=== PATIENT | female | born 1990 | race African-American/Black ===

== ENCOUNTER 2019-11-10 15:26 | Inpatient (IN) ==
[2019-11-10] MEDS ORDERED: BUTORPHANOL 2 MG/ML VIAL IV PRN (16:17)
[2019-11-10] MEDS ORDERED: ONDANSETRON 4 MG/2 ML VIAL IV PRN (16:17)
[2019-11-10] MEDS ORDERED: MEPERIDINE 50 MG/1 ML VIAL IV PRN (16:17)
[2019-11-10] MEDS ORDERED: DINOPROSTONE VAG GEL 10 MG SYRINGE VAG ONE (16:25)
[2019-11-10 16:45] LABS: Basophils % 0.2 % (0.0-0.8); Eosinophils # 0.2 10*3/uL (0.0-0.87); Eosinophils % 1.7 % (0.00-10.9); Hematocrit 37.1 VOL% (35.7-47.0); Hemoglobin 11.8 GM/DL (12.0-16.0); Immature Granulocytes % 0.6 %; Immature Granulocytes Absolute 0.06 #; Lymphocytes # 2.4 10*3/uL (1.4-4.0); Lymphocytes % 22.2 % (21.3-54.2); Mean Corpuscular HGB Conc 31.8 GM/DL (32-36); Mean Corpuscular Volume 92.8 FL (87-102); Mean Platelet Volume 10.5 FL (9.6-12.0); Monocytes % 9.6 % (1.7-12.7); Neutrophils % 65.7 % (38.7-73.9); Platelet Count 198 T/CUMM (130-400); Red Cell Distribution Width 14.6 % (9.3-17.3); White Blood Count 10.9 T/CUMM (4-12)
[2019-11-11] MEDS ORDERED: OXYTOCIN/LR 20 UNIT/1,000 ML BAG IV SCH (02:00)
[2019-11-11] MEDS: LACTATED RINGERS 1,000 ML IV SCH ×2 (02:45→10:40)
[2019-11-11] MEDS ORDERED: CITRIC ACID/SODIUM CITRATE 30 ML UDCUP PO ONE (09:02)
[2019-11-11] MEDS ORDERED: LACTATED RINGERS 1,000 ML IV ONE (09:02)
[2019-11-11] MEDS ORDERED: FAMOTIDINE 20 MG/2 ML VIAL IV ONE (09:02)
[2019-11-11] MEDS ORDERED: diphenhydrAMINE 50 MG/1 ML VIAL IV PRN ×2 (09:03)
[2019-11-11] MEDS ORDERED: PROMETHAZINE 25 MG/1 ML VIAL IM ONE (09:03)
[2019-11-11] MEDS ORDERED: NALOXONE 0.4 MG/ML VIAL IV PRN (09:03)
[2019-11-11] MEDS ORDERED: hydrOXYzine HCL 25 MG/1 ML VIAL IM PRN (09:03)
[2019-11-11] MEDS ORDERED: ePHEDrine 50 MG/ML AMP IV PRN (09:03)
[2019-11-11] MEDS ORDERED: fentaNYL 2 MCG/ROPIV 0.2% EPID 100 ML EPIDURAL SCH (09:30)
[2019-11-11 12:24] LABS: Apearance,Urine CLEAR (Clear); Bacteria,Urine Occasional /HPF (Few); Bilirubin,Urine Negative (Negative); Blood, Urine Negative (Negative); Glucose,Urine (UA) Negative (Negative); Ketones,Urine 5 mg/dL (Negative); Mucus,Urine Few /LPF (Occasional); Nitrite,Urine Negative (Negative); Protein,Urine Negative; RBC,Urine 1 /HPF (0-4); Squamous Epithelial Cell,Urine Occasional /HPF (0-10); Urine Color Yellow (Yellow); Urine Specific Gravity 1.014 (1.001-1.035); Urine Urobilinogen < 2.0 EU/DL (0.2-1.0); WBC,Urine 3 /HPF (0-6)
[2019-11-11] MEDS ORDERED: OXYTOCIN/LR 30 UNIT/1,000 ML BAG IV ONE (17:37)
[2019-11-11] MEDS ORDERED: OXYTOCIN 10 UNIT/ML VIAL IM ONE (17:37)
[2019-11-11] MEDS ORDERED: ceFAZolin 3,000 MG in SYRINGE 1 EACH IV SCH (18:00)
[2019-11-11 18:40] LABS: Cord Arterial Blood HCO3 25.7 MMOL/L; Cord Venous Blood HCO3 21.3 MMOL/L; Cord Venous Blood PCO2 55.7 MMHG; Cord Venous Blood PO2 17.2
[2019-11-11] MEDS ORDERED: ACETAMINOPHEN 325 MG TABLET PO PRN (18:56)
[2019-11-11] MEDS ORDERED: OXYTOCIN/LR 20 UNIT/1,000 ML BAG IV ONE (18:56)
[2019-11-11] MEDS ORDERED: MAGNESIUM HYDROXIDE SUSP 30 ML UDCUP PO PRN (18:56)
[2019-11-11] MEDS ORDERED: ONDANSETRON 4 MG/2 ML VIAL IV PRN (18:56)
[2019-11-11] MEDS ORDERED: RHO(D) IMMUNE GLOBULIN 300 MCG SYRINGE IM ONE (18:56)
[2019-11-11] MEDS ORDERED: LACTATED RINGERS 1,000 ML IV SCH (19:00)
[2019-11-11] MEDS ORDERED: MORPHINE 10 MG/10 ML VIAL ONE (19:09)
[2019-11-11] MEDS ORDERED: LIDOCAINE MPF 2% /EPI 20 ML VIAL ONE (19:15)
[2019-11-11] MEDS ORDERED: ONDANSETRON 4 MG/2 ML VIAL ONE (19:15)
[2019-11-11] MEDS ORDERED: PHENYLEPHRINE 1 MG/10 ML SYRINGE IV ONE (19:15)
[2019-11-11] MEDS ORDERED: DOCUSATE SODIUM 100 MG CAPSULE PO SCH (21:00)
[2019-11-12] MEDS: ceFAZolin 1,000 MG in SYRINGE 1 EACH IV SCH ×2 (01:25→11:45)
[2019-11-12 02:32] LABS: Basophils % 0.2 % (0.0-0.8); Eosinophils # 0.1 10*3/uL (0.0-0.87); Eosinophils % 0.9 % (0.00-10.9); Hematocrit 33.7 VOL% (35.7-47.0); Hemoglobin 10.9 GM/DL (12.0-16.0); Immature Granulocytes % 0.4 %; Immature Granulocytes Absolute 0.05 #; Lymphocytes # 1.7 10*3/uL (1.4-4.0); Lymphocytes % 14.2 % (21.3-54.2); Mean Corpuscular HGB Conc 32.3 GM/DL (32-36); Mean Corpuscular Volume 92.3 FL (87-102); Mean Platelet Volume 10.3 FL (9.6-12.0); Monocytes % 8.4 % (1.7-12.7); Neutrophils % 75.9 % (38.7-73.9); Platelet Count 164 T/CUMM (130-400); Red Blood Count 3.65 MC/CUMM (3.8-5.5); Red Cell Distribution Width 14.6 % (9.3-17.3); White Blood Count 12.2 T/CUMM (4-12)
[2019-11-12] MEDS: IBUPROFEN 800 MG TABLET PO PRN ×2 (06:14→19:09)
[2019-11-12] MEDS ORDERED: diphenhydrAMINE CAP 25 MG CAPSULE PO PRN (08:45)
[2019-11-12] MEDS: MAGNESIUM HYDROXIDE SUSP 30 ML UDCUP PO SCH ×2 (09:07→20:35)
[2019-11-12] MEDS: MULTIVITAMIN (PRENATAL) TABLET PO SCH (09:07)
[2019-11-12] MEDS: SIMETHICONE CHEW 80 MG TABLET PO PRN (09:07)
[2019-11-12] MEDS: DOCUSATE SODIUM 100 MG CAPSULE PO SCH ×2 (09:07→20:35)
[2019-11-12] MEDS: METOCLOPRAMIDE 10 MG TABLET PO SCH ×2 (10:00→18:45)
[2019-11-12 10:44] LABS: Basophils % 0.2 % (0.0-0.8); Eosinophils # 0.1 10*3/uL (0.0-0.87); Hematocrit 34.1 VOL% (35.7-47.0); Hemoglobin 10.7 GM/DL (12.0-16.0); Immature Granulocytes % 0.7 %; Immature Granulocytes Absolute 0.09 #; Lymphocytes # 1.9 10*3/uL (1.4-4.0); Lymphocytes % 14.3 % (21.3-54.2); Mean Corpuscular HGB Conc 31.4 GM/DL (32-36); Mean Corpuscular Volume 92.9 FL (87-102); Mean Platelet Volume 10.2 FL (9.6-12.0); Monocytes % 9.1 % (1.7-12.7); Neutrophils % 74.7 % (38.7-73.9); Platelet Count 171 T/CUMM (130-400); Red Blood Count 3.67 MC/CUMM (3.8-5.5); Red Cell Distribution Width 14.4 % (9.3-17.3); White Blood Count 13.3 T/CUMM (4-12)
[2019-11-12] MEDS ORDERED: ceFAZolin 1,000 MG in SYRINGE 1 EACH IV SCH (11:30)
[2019-11-13] MEDS: IBUPROFEN 800 MG TABLET PO PRN (03:31)
[2019-11-13] MEDS: METOCLOPRAMIDE 10 MG TABLET PO SCH ×2 (03:31→08:57)
[2019-11-13] MEDS: DOCUSATE SODIUM 100 MG CAPSULE PO SCH (08:57)
[2019-11-13] MEDS: SIMETHICONE CHEW 80 MG TABLET PO PRN (08:57)
[2019-11-13] MEDS: MAGNESIUM HYDROXIDE SUSP 30 ML UDCUP PO SCH (08:58)
[2019-11-13] MEDS: MULTIVITAMIN (PRENATAL) TABLET PO SCH (08:58)
[2019-11-13 09:09] VITALS: BP 124/59
== END 2019-11-13 14:15 | disposition home or self-care (01) | DRG 788 ==
LOC: N.LDOUT 15:26 → N.LD 15:29 → N.OB 11-11 22:46
PROVIDERS: ADMIT Obstetrics & Gynecology; ATTEND Obstetrics & Gynecology
PROC: LDCSECT (ICD-10-PCS; 2019-11-11 18:00)

== ENCOUNTER 2019-11-19 21:08 | Observation (INO) ==
[2019-11-19] MEDS ORDERED: cefTRIAXone 1,000 MG in SODIUM CHLORIDE 0.9% 100 ML IV STA (21:35)
[2019-11-19] MEDS ORDERED: BISACODYL 10 MG SUPP RECTAL PRN (21:40)
[2019-11-19] MEDS ORDERED: ONDANSETRON 4 MG/2 ML VIAL IV PRN (21:40)
[2019-11-19] MEDS ORDERED: MAGNESIUM HYDROXIDE SUSP 30 ML UDCUP PO PRN (21:40)
[2019-11-19 22:19] LABS: Basophils % 0.2 % (0.0-0.8); Eosinophils # 0.2 10*3/uL (0.0-0.87); Eosinophils % 1.7 % (0.00-10.9); Hematocrit 36.8 VOL% (35.7-47.0); Hemoglobin 11.6 GM/DL (12.0-16.0); Immature Granulocytes % 0.4 %; Immature Granulocytes Absolute 0.05 #; Lymphocytes # 1.7 10*3/uL (1.4-4.0); Lymphocytes % 15.5 % (21.3-54.2); Mean Corpuscular HGB Conc 31.5 GM/DL (32-36); Mean Corpuscular Volume 93.2 FL (87-102); Mean Platelet Volume 9.5 FL (9.6-12.0); Monocytes % 6.9 % (1.7-12.7); Neutrophils % 75.3 % (38.7-73.9); Platelet Count 281 T/CUMM (130-400); Red Blood Count 3.95 MC/CUMM (3.8-5.5); Red Cell Distribution Width 14.4 % (9.3-17.3); White Blood Count 11.1 T/CUMM (4-12)
[2019-11-19 22:41] LABS: Albumin 2.7 G/DL (3.4-5.0); Bilirubin,Total 0.7 MG/DL (0.2-1.0); Calcium 8.8 MG/DL (8.5-10.1); Osmolality,Calculated 281.3 MOS/KG (273-304); Total Protein 7.2 G/DL (6.4-8.3)
[2019-11-20] MEDS: LACTATED RINGERS 1,000 ML IV SCH ×2 (01:41→08:29)
[2019-11-20] MEDS ORDERED: DOCUSATE SODIUM 100 MG CAPSULE PO SCH (09:00)
[2019-11-20 13:38] VITALS: BP 124/82
== END 2019-11-20 13:42 | disposition home or self-care (01) ==
LOC: EDUNIT# → EDBD → N.ED 21:08 → N.EDINP 21:08 → N.3E 23:22
PROVIDERS: ADMIT Obstetrics & Gynecology; ATTEND Obstetrics & Gynecology